=== PATIENT | male | born 1970 | race Caucasian/White ===

== ENCOUNTER 2020-06-28 12:11 | Emergency (ER) | payer OTHER, SELFPAY ==
--- NOTE | ~2020-06-28 | XR_ITS ---
EXAMINATION: XR chest 1V portable DATE: 06/28/2020 12:31 INDICATION: Left chest pain. Shortness of breath. TECHNIQUE: A single frontal view of the chest was obtained. COMPARISON: None. FINDINGS: The chest demonstrates clear lungs without pneumonia, pleural effusion, or pneumothorax. Th e heart size is normal. IMPRESSION: 1. No acute cardiopulmonary disease. Reviewed, dictated and finalized at location A. GRATION CASE MANAGER
--- NOTE | ~2020-06-28 | CT_ITS ---
EXAMINATION: CTA chest DATE: 06/28/2020 14:18 INDICATION: Chest pain. TECHNIQUE: Computed tomographic angiography (CTA) of the chest was performed with 100 mL Omnipaque-35 0 intravenous contrast. Automated exposure control and iterative reconstruction technique were employ ed. The dose-length product was 816.81 mGy-cm. Maximum intensity projection 3D-reconstructions of the aorta and other arteries were constructed by the technologist on a separate workstation. COMPARISON: Chest single view 06/28/2020 FINDINGS: Calcified bilateral lung nodules are consistent with old granulomatous disease. No pleural effusion. The heart size is normal. No pericardial effusion. Thoracic aorta is normal. There is a mil dly enlarged periportal lymph node, likely reactive. There is no pulmonary embolus. There is severe c ervical spondylosis and mild thoracic spondylosis. IMPRESSION: 1. Normal thoracic aorta. 2. No pulmonary embolus. Reviewed, dictated and finalized at location A. RHANGER PIPE
--- NOTE | 2020-06-28 12:15 | ECG_ITS ---
Measurements Intervals [place] Rate: 89 P: 3 [place]: 169 QRS: 11 QRSD: 101 T: -16 QT: 358 QTc: 436 Interpretive Statements SINUS RHYTHM VENTRICULAR PREMATURE COMPLEX DELAYED PRECORDIAL R/S TRANSITION BORDERLINE ST-T WAVE ABNORMALITY- INFERIOR LEADS BASELINE ARTIFACT- I, II, III, AVR, AVL, AVF, V2 BORDERLINE ECG Electronically Signed On 06-28-2020 15:30:28 CREDIT CONTROL MANAGER by Mendoza Cardona D.O.
[2020-06-28 12:19] VITALS: BP 185/88; PULSE 94; RESP 16; TEMP 36; O2SAT 98
[2020-06-28 12:23] VITALS: PULSE 91
--- NOTE | 2020-06-28 12:41 | ED.GENADULT ---
HPI - General Adult General Chief complaint: Chest Pain Stated complaint: sob, chest pain Time Seen by Provider: 06/28/20 12:15 Source: patient History of Present Illness HPI narrative: Patient is a 49 y/o male complaining of sharp, stabbing chest pain for about 5 days. He states that his chest pain is bilateral, but worse on left side. He rates his pain as 9/10. His pain radiates to his back. He states that deep respiration aggravates his pain. He has a slight cough, but denies fever or SOB. Related Data Home Medications Medication Instructions Recorded Confirmed allopurinol 06/28/20 lisinopril 06/28/20 pravastatin 06/28/20 06/28/20 Allergies Allergy/AdvReac Type Severity Reaction Status Date / Time Sulfa (Sulfonamide Allergy Unknown Verified 06/28/20 12:24 Antibiotics) Review of Systems Constitutional: Constitutional: Denies chills, Denies fever(s), Denies headache(s) and Denies weakness Eyes: Eyes: Denies blurry vision ENT: Denies headache(s) and Denies neck pain Cardiovascular: Cardiovascular: Reports chest pain and Denies dyspnea Respiratory: Respiratory: Reports cough and Denies dyspnea Gastrointestinal: Gastrointestinal: Denies abdominal pain, Denies diarrhea, Denies nausea and Denies vomiting Genitourinary: Genitourinary: Denies hematuria and Denies dysuria Musculoskeletal: Musculoskeletal: Denies back pain and Denies neck pain Neurologic: Denies headache(s) and Denies weakness PMFSH Social History Social History Gender identity (if verbalized by the patient): Male Exam Const: General: no acute distress and well developed Orientation/consciousness: oriented to person, oriented to place, oriented to time and patient oriented x3 HENMT: Head: normocephalic Ears: external ears normal General nose exam: Normal external nose present Eyes: General: appearance normal, both eyes and all related structures Conjunctivae: conjunctivae normal Neck: Neck: normal visual inspection and full ROM Chest: Chest palpation & inspection: normal inspection of the chest and no tenderness Resp: Effort & Inspection: normal respiratory effort Auscultation: clear to auscultation bilaterally Cardio: Rate: regular rate Rhythm: regular rhythm GI: GI Palp: No abdominal tenderness and Yes Soft to palpation Skin: General skin exam: normal color and turgor normal Neuro: General: oriented to person, oriented to place, oriented to time and patient oriented x3 Cognition (Neuro): normal cognition Extrem: General: normal to inspection, full ROM and no pedal edema Psych: Appearance: grossly normal Mental Status: mental status grossly normal Affect: normal affect Course Vital Signs Vital signs: Vital Signs Temperature 36.0 C L 06/28/20 12:19 Pulse Rate 94 06/28/20 12:19 Respiratory Rate 16 06/28/20 12:19 Blood Pressure 185/88 H 06/28/20 12:19 Pulse Oximetry 98 06/28/20 12:19 Temperature 36.0 C L 06/28/20 12:19 Pulse Rate 66 06/28/20 16:44 Respiratory Rate 13 06/28/20 16:44 Blood Pressure 145/97 H 06/28/20 16:44 Pulse Oximetry 96 06/28/20 16:44 Medical Decision Making Vital Signs Vital Signs: Vital Signs Temperature 36.0 C L 06/28/20 12:19 Pulse Rate 94 06/28/20 12:19 Respiratory Rate 16 06/28/20 12:19 Blood Pressure 185/88 H 06/28/20 12:19 Pulse Oximetry 98 06/28/20 12:19 Temperature 36.0 C L 06/28/20 12:19 Pulse Rate 66 06/28/20 16:44 Respiratory Rate 13 06/28/20 16:44 Blood Pressure 145/97 H 06/28/20 16:44 Pulse Oximetry 96 06/28/20 16:44 Lab Data Result diagrams: 06/28/20 12:47 06/28/20 12:47 Labs: Lab Results 06/28/20 06/28/20 06/28/20 Range/Units 12:47 12:47 12:47 WBC 7.3 (4.5-10.0) K/mm3 RBC 5.26 (4.6-6.20) M/mm3 Hgb 16.9 (14.0-18.0) g/dL Hct 47.5 (42.0-52.0) % MCV 90.3 (80-100) fl MCH 32.1
[2020-06-28 13:00] LABS: Basophils Percent Auto 0.5 % (0.2-1.2); Eosinophils Absolute Auto 0.1 K/mm3 (0-0.3); Eosinophils Percent Auto 1.1 % (0-4.4); Hematocrit 47.5 % (42.0-52.0); Hemoglobin 16.9 g/dL (14.0-18.0); Immature Granulocyte Absolute 0.02 K/mm3 (0.00-0.031); Immature Granulocyte Percent A 0.3 % (0-0.5); Lymphocytes Absolute Auto 1.74 K/mm3 (0.9-3.2); Lymphocytes Percent Auto 23.8 % (18.3-44.2); Mean Corpuscular HGB Conc 35.6 g/dl (32-36); Mean Corpuscular Hemoglobin 32.1 pg (26-34); Mean Corpuscular Volume 90.3 fl (80-100); Mean Platelet Volume 9.9 fl (7.4-10.4); Monocytes Absolute Auto 0.6 K/mm3 (0.1-0.6); Monocytes Percent Auto 8.2 % (2.6-8.5); Neutrophils Absolute Auto 4.8 K/mm3 (1.3-6.7); Neutrophils Percent Auto 66.1 % (45.5-73.1); Platelet Count Result 220 k/mm3 (150-375); Red Blood Count 5.26 M/mm3 (4.6-6.20); Red Cell Distribution Width 12.4 % (11.5-14.5); White Blood Count 7.3 K/mm3 (4.5-10.0)
[2020-06-28 13:10] LABS: Prothrombin Time 13.7 Seconds (11.1-14.7)
[2020-06-28 13:12] LABS: Anion Gap 8 mmol/L (8-16); Blood Urea Nitrogen 13 mg/dL (9-20); Calcium 9.4 mg/dL (8.4-10.2); Carbon Dioxide 29 mmol/L (22-30); Chloride 102 mmol/L (98-107); Estimated CRCL calculation 117 ml/min; Estimated Glomerular Filt Rate > 60; Glucose 186 mg/dL (75-110); Potassium 3.9 mmol/L (3.4-5.0); Sodium 139 mmol/L (137-145)
[2020-06-28] MEDS: ASPIRIN 81 MG CHEWABLE TABLET 324 MG PO (13:15)
[2020-06-28 13:18] LABS: D Dimer 0.27 ug/mL (<0.48)
[2020-06-28 13:24] LABS: Troponin I < 0.012 ng/mL (0.000-0.034)
[2020-06-28] MEDS: KETOROLAC 30 MG/ML VIAL (*BKC) IV PUSH (13:56)
[2020-06-28 14:37] VITALS: BP 139/80; PULSE 70; RESP 16; O2SAT 98
[2020-06-28 15:41] LABS: Troponin I < 0.012 ng/mL (0.000-0.034)
[2020-06-28 16:44] VITALS: BP 145/97; PULSE 66; RESP 13; O2SAT 96
[2020-06-29 16:54] LABS: SARS-CoV-2 RNA PCR Negative
== END 2020-06-28 16:45 | disposition home or self-care (01) ==
PROVIDERS: Emergency Provider Emergency Medicine; PCP Internal Medicine
DX: R07.9 Chest pain, unspecified (principal); Z20.828 Contact with and (suspected) exposure to other viral communicable diseases
CPT/HCPCS: 36415; 71045; 71275; 80048; 84484; 85025; 85380; 85610; 85730; 87635; 93005; 96374; 99284; A9270; C9803; J1885; Q9967; U0003